=== PATIENT | male | born 2005 | race African-American/Black ===

== ENCOUNTER 2024-05-13 17:21 | Emergency (ER) | payer OTHER, SELFPAY ==
[2024-05-13 17:42] VITALS: BP 138/80
--- NOTE | 2024-05-13 18:05 | ED.SKININJ ---
HPI-Injury
General
Chief Complaint: Skin Surface Trauma
Time Seen by Provider: 05/13/24 17:51
History of Present Illness-Injury
Initial Injury comments:
Patient presents to the emergency department with laceration on his left forearm. States he was using an eyebrow Colón did shave his forearm here. Somebody bumped him from behind and he slipped and cut his forearm. Unknown last tetanus. Denies
numbness or tingling in his hand. Denies weakness in hand.
Phy Exam
Physical Exam
Physical Exam:
General: No acute distress
Head: NCAT
Neck, Normal in appearance, no swelling
Respiratory: No Respiratory distress
Abdomen: No distension
Ext: Left dorsal forearm with 7 cm deep hook shaped laceration. Through fascial layer. Wrist extensors and finger extensors all intact. Patient intact throughout upper extremity. Strong palpable ulnar/radial pulses
Neuro: GORDON, AOx4
Psych: Normal affect, denies self harm or suicidality
Skin: Normal color
Course
Orders/Labs/Results
Orders:
Orders
05/13/24 17:47
Tetanus/Diphth/Acelpertussis [Adacel] 0.5 ml IM .ONCE ONE
05/13/24 18:53
Bacitracin Zinc [Bacitracin Ointment] See Dose Instructions TOPICAL ONCE ONE
Vital Signs
Initial and Last Documented VS:
Initial Vital Signs
Temp Pulse Resp BP Pulse Ox
99.2 F 61 16 138/80 100
05/13/24 17:42 05/13/24 17:42 05/13/24 17:42 05/13/24 17:42 05/13/24 17:42
Last Documented Vital Signs
Temp Pulse Resp BP Pulse Ox
99.2 F 61 16 138/80 100
05/13/24 17:42 05/13/24 17:42 05/13/24 17:42 05/13/24 17:42 05/13/24 17:42
Procedures
Laceration Closure
Left Dorsal Arm:
Status of Wound: clean
Size of Wound in cm: 10
Description of Wound Edges: sharp
Preparation: cleaned with saline
Anesthesia: 1% Lidocaine with epi (8cc)
Revision/Debridement: routine- no revision
Type of Closure: layered closure and interrupted sutures
Skin Closure Material: 4-0 nylon (12 simple interrupted ) and 4-0 vicryl (3 deep)
*Critical Care Note
Total Time (30-74mins, 75-104mins- exclusive of procedures): Not Applicable
ED Attending Note
ED Attending Note
ED Attending Note:
Patient with accidental laceration of forearm from a razor blade. Wound thoroughly cleansed and repaired with suture. No evidence of neurovascular injury. Tetanus addressed.
-
Portions of this chart may have been created with voice recognition software.� Occasional wrong word or��sound alike� substitutions may have occurred due to the inherent limitations of voice recognition software.
Discharge Plan
Departure
Patient Disposition: Home (Routine Discharge)
Date of Disposition: 05/13/24
Time of Disposition: 18:52
Patient with high blood pressure during this ER visit?: No
Discharge Problem:
Laceration
Instructions: Laceration Repair With Stitches (DC)
Activity Restrictions/Additional Instructions:
sutures out in 7-10 days
return with signs of infection (redness, pus, fevers)
Interventions
Interventions:
*Risk Screen - Suicide Last Done: 05/13/24 17:42
*General Assessment Last Done: 05/13/24 17:42
*ED COVID-19 Vaccine History Last Done: 05/13/24 17:42
*Nursing Disposition Last Done: 05/13/24 19:20
ED-Skin Assessment Last Done: 05/13/24 19:19
Discharge Date and Time
Print Language: KYRGYZ
[2024-05-13] MEDS: ADACEL 0.5 ML IM (19:16)
[2024-05-13] MEDS: BACITRACIN OINTMENT 1 APPLIC TOPICAL (19:16)
== END 2024-05-13 19:32 | disposition home or self-care (01) ==
LOC: EMR 17:21
PROVIDERS: EMERGENCY PHYSICIAN Emergency Medicine; FAMILY PHYSICIAN Registered Nurse Pediatrics
DX: S51.812A Laceration without foreign body of left forearm, initial encounter (principal); W45.8XXA Other foreign body or object entering through skin, initial encounter; Z23 Encounter for immunization
CPT/HCPCS: 99283; 12034; 90471; 90715

== ENCOUNTER 2024-09-06 19:43 | Emergency (ER) | payer OTHER, SELFPAY ==
[2024-09-06 19:55] VITALS: BP 132/85; BMI 25.3
--- NOTE | 2024-09-06 20:43 | ED.GENMED ---
History of Present Illness
<Ernst Vigil DO - Last Filed: 09/07/24 19:10>
General
Chief Complaint: Psychiatric Problem
Source: patient
Exam Limitations: none
Time Seen by Provider: 09/06/24 20:11
Nursing documentation reviewed up to this point in time: agreed with
History of Present Illness
History of Present Illness:
19-year-old male was in [place] visiting his baby's mother, got into an argument, apparently threatened to jump into the street police were called, brought in here for evaluation here he is calm cooperative like to speak to his own mother, not
intoxicated,
Past History
<Ernst Vigil DO - Last Filed: 09/07/24 19:10>
Past History
ED Past Medical History: None
ED Past Surgical History: None
Social History
Tobacco: Non-smoker
Alcohol: None
Drug: None
Personal: Single
Living: with family
Review of Systems
<Ernst Vigil DO - Last Filed: 09/07/24 19:10>
Review of Systems
All Other Systems: Not applicable
Psychiatric: Reports anxiety; Denies depression or suicidal
Phy Exam
<Ernst Vigil DO - Last Filed: 09/07/24 19:10>
Physical Exam
Physical Exam:
Physical Exam
General: no apparent distress, not acutely ill
Neck: No jaundice
Heart: s1/s2 regular rate and rhythm, no murmur. equal radial pulses.
Lungs: no acute respiratory distress. clear bilaterally
Neuro: alert and oriented. no focal neurological deficits
Skin: no rash
Psychiatric: cooperative
Extremities: no edema.
Course
<Ernst Vigil DO - Last Filed: 09/07/24 19:10>
Orders/Labs/Results
Orders:
Orders
09/07/24 06:12
PSYCHIATRY CONSULT Urgent
Consulting Provider: Che Dee
Was physician already notified: No
Reason for consult: suicidal
09/07/24 06:13
Consult Notification Routine
Specialty to Notify: Psychiatry
Vital Signs
Initial and Last Documented VS:
Initial Vital Signs
Pulse Resp BP Pulse Ox
78 16 132/85 98
09/06/24 19:55 09/06/24 19:55 09/06/24 19:55 09/06/24 19:55
Last Documented Vital Signs
Pulse Resp BP Pulse Ox
72 16 118/84 98
09/07/24 08:26 09/07/24 08:26 09/07/24 08:26 09/07/24 08:26
<Fransisco Lpoez, DO - Last Filed: 09/07/24 01:08>
Orders/Labs/Results
Orders:
Orders
09/07/24 06:12
PSYCHIATRY CONSULT Urgent
Consulting Provider: Che Dee
Was physician already notified: No
Reason for consult: suicidal
09/07/24 06:13
Consult Notification Routine
Specialty to Notify: Psychiatry
Vital Signs
Initial and Last Documented VS:
Initial Vital Signs
Pulse Resp BP Pulse Ox
78 16 132/85 98
09/06/24 19:55 09/06/24 19:55 09/06/24 19:55 09/06/24 19:55
Last Documented Vital Signs
Pulse Resp BP Pulse Ox
72 16 118/84 98
09/07/24 08:26 09/07/24 08:26 09/07/24 08:26 09/07/24 08:26
<Ernst Vigil DO - Last Filed: 09/07/24 19:10>
MDM/Problems Addressed
Differential Diagnosis Includes:
Anxiety stress
MDM/Problems Addressed:
Argument with suicidal comments after meeting with his baby's mother
<Ernst Vigil, DO - Last Filed: 09/07/24 19:10>
*Critical Care Note
Total Time (30-74mins, 75-104mins- exclusive of procedures): Not Applicable
<Ernst Vigil, DO - Last Filed: 09/07/24 19:10>
Update Note
Update Note:
Update patient calm and cooperative here not intoxicated, reviewed with crisis will have telepsychiatry evaluate him
<Fransisco Lopez, DO - Last Filed: 09/07/24 01:08>
Update Note
Update Note:
Update patient calm and cooperative here not intoxicated, reviewed with crisis will have telepsychiatry evaluate him.
12:05 AM: Spoke with telepsych who did not want to uphold the 302 that police filled out on him.
01:00 AM: Mom arrived and very concerned that her son was going to be discharged home. She stated that he is a danger to himself. She was willing to fill out a second 302 on him. She is very concerned for his safety.
After reading both 302's, and speaking with the telepsychiatrist, I feel that patient is unsafe to be discharged home. Observing his behavior while in the crisis room 1 supports my decision to uphold the 302. He is very angry and screaming on the
phone. Patient told me that no matter what we do with him he still going to come out of the psych facility with the same mentality.
1:07 AM: Patient agreed to 201 himself
ED Attending Note
<Ernst Vgiil, DO - Last Filed: 09/07/24 19:10>
-
Portions of this chart may have been created with voice recognition software.� Occasional wrong word or��sound alike� substitutions may have occurred due to the inherent limitations of voice recognition software.
Discharge Plan
Departure
Patient Disposition: Psych Facility
Date of Disposition: 09/06/24
Time of Disposition: 21:16
Patient Status:: 201
Patient with high blood pressure during this ER visit?: No
Condition: Good
Discharge Problem:
Anxiety, Suicidal ideations
Instructions: Generalized Anxiety Disorder (DC)
Interventions
Interventions:
*Risk Screen - Suicide Last Done: 09/06/24 19:55
*General Assessment Last Done: 09/06/24 19:55
*Neglect/Abuse Screening Last Done: 09/06/24 19:55
*ED- Fall Risk Assessment Last Done: 09/06/24 19:55
*ED COVID-19 Vaccine History Last Done: 09/06/24 19:55
*Nursing Disposition Last Done: 09/07/24 09:34
ED-Psychological Assessment Last Done: 09/07/24 08:27
Discharge Date and Time
Discharge Date/Time: 09/07/24 09:35
Print Language: NAMIBIAN
[2024-09-06 23:24] VITALS: BP 125/63
[2024-09-07 08:26] VITALS: BP 118/84
== END 2024-09-07 09:35 ==
LOC: EMR 19:43
PROVIDERS: CONSULT PHYSICIAN Psychiatry & Neurology Psychiatry; EMERGENCY PHYSICIAN Emergency Medicine
DX: F41.9 Anxiety disorder, unspecified (principal); R45.851 Suicidal ideations; Z63.0 Problems in relationship with spouse or partner
CPT/HCPCS: 99285